=== PATIENT | male | born 1960 | race Two or more races ===

== ENCOUNTER 2022-04-26 07:48 | Emergency (ER) | payer OTHER ==
[~2022-04-26] VITALS: Ht 167.6 cm; Wt 90.7 kg
[2022-04-26] MEDS ORDERED: MOTRIN IB200 M1 (08:09)
[2022-04-26] MEDS ORDERED: CIPRO500 MG PO (08:10)
[2022-04-26] MEDS ORDERED: TAMS0.4C PO (08:10)
[2022-04-26] MEDS ORDERED: ATORVASTATIN CA20 MG PO (08:10)
[2022-04-26] MEDS ORDERED: ULTRAM50 MG PO (08:11)
[2022-04-26] MEDS ORDERED: FINASTERIDE5 MG PO (08:11)
== END 2022-04-26 14:38 | disposition home or self-care (01) ==
LOC: ER 07:48
DX: N39.0 Urinary tract infection, site not specified (principal); R33.9 Retention of urine, unspecified; N40.0 Benign prostatic hyperplasia without lower urinary tract symptoms

== ENCOUNTER 2022-05-29 18:01 | Emergency (ER) | payer OTHER ==
[~2022-05-29] VITALS: Ht 167.6 cm; Wt 95.3 kg
[~2022-05-29 18:01] MED LIST: ATORVASTATIN CA20 MG PO; CIPRO500 MG PO; FINASTERIDE5 MG PO; MOTRIN IB200 M1; TAMS0.4C PO; ULTRAM50 MG PO
== END 2022-05-29 22:06 | disposition home or self-care (01) ==
LOC: ER 18:01
DX: T83.9XXA Unspecified complication of genitourinary prosthetic device, implant and graft, initial encounter (principal); I10 Essential (primary) hypertension; N40.0 Benign prostatic hyperplasia without lower urinary tract symptoms; N39.0 Urinary tract infection, site not specified; Z46.6 Encounter for fitting and adjustment of urinary device; B96.89 Other specified bacterial agents as the cause of diseases classified elsewhere; Z16.19 Resistance to other specified beta lactam antibiotics

== ENCOUNTER 2022-06-28 05:56 | Emergency (ER) | payer OTHER ==
[~2022-06-28] VITALS: Ht 167.6 cm; Wt 95.3 kg
[2022-06-28] MEDS ORDERED: AMLODIPINE-OLM1 EAC1 PO (06:15)
== END 2022-06-28 10:24 | disposition home or self-care (01) ==
LOC: ER 05:56
DX: M54.89 Other dorsalgia (principal); N39.0 Urinary tract infection, site not specified; B96.89 Other specified bacterial agents as the cause of diseases classified elsewhere; I10 Essential (primary) hypertension

== ENCOUNTER 2022-08-15 17:56 | Emergency (ER) | payer OTHER ==
[~2022-08-15] VITALS: Ht 167.6 cm; Wt 93.0 kg
[~2022-08-15 17:56] MED LIST changes: +AMLODIPINE-OLM1 EAC1 PO
== END 2022-08-15 19:57 | disposition home or self-care (01) ==
LOC: ER 17:56
DX: T83.011A Breakdown (mechanical) of indwelling urethral catheter, initial encounter (principal)

== ENCOUNTER 2022-09-27 09:22 | Emergency (ER) | payer OTHER ==
[~2022-09-27] VITALS: Ht 167.6 cm; Wt 93.0 kg
[2022-09-27] MEDS ORDERED: TAMS0.4C (09:36)
[2022-09-27] MEDS ORDERED: ZESTRIL10 M1 (09:37)
[2022-09-27] MEDS ORDERED: LIPITOR40 MG (09:37)
[2022-09-27] MEDS ORDERED: AMLODIPINE-OLM1 EAC3 (09:37)
[2022-09-27] MEDS ORDERED: HYDROCHLOROTH12.5 MG PO (09:38)
[2022-09-27] MEDS ORDERED: PROSCAR5 MG (09:38)
== END 2022-09-27 10:53 | disposition home or self-care (01) ==
LOC: ER 09:22
DX: T83.118A Breakdown (mechanical) of other urinary devices and implants, initial encounter (principal)

== ENCOUNTER 2022-10-31 19:22 | Emergency (ER) | payer OTHER ==
[~2022-10-31] VITALS: Ht 167.6 cm; Wt 91.6 kg
== END 2022-10-31 20:16 | disposition home or self-care (01) ==
LOC: ER 19:22
DX: T83.011A Breakdown (mechanical) of indwelling urethral catheter, initial encounter (principal)

== ENCOUNTER → 2022-10-31 | Emergency (ER) | payer OTHER ==
[~2022-10-31] VITALS: Ht 167.6 cm; Wt 91.6 kg
[~2022-10-31] MED LIST changes: +AMLODIPINE-OLM1 EAC3; +HYDROCHLOROTH12.5 MG PO; +LIPITOR40 MG; +PROSCAR5 MG; +TAMS0.4C; +ZESTRIL10 M1
== END | disposition left against medical advice (07) ==
LOC: ER 21:53
DX: Z53.21 Procedure and treatment not carried out due to patient leaving prior to being seen by health care provider (principal)

== ENCOUNTER 2022-12-10 15:07 | Emergency (ER) | payer OTHER ==
[~2022-12-10] VITALS: Ht 170.2 cm; Wt 95.3 kg
== END 2022-12-10 17:06 | disposition home or self-care (01) ==
LOC: ER 15:07
DX: R33.9 Retention of urine, unspecified (principal); I10 Essential (primary) hypertension; Z85.46 Personal history of malignant neoplasm of prostate

== ENCOUNTER 2022-12-18 07:59 | Emergency (ER) | payer OTHER ==
[~2022-12-18] VITALS: Ht 167.6 cm; Wt 95.3 kg
== END 2022-12-18 09:32 | disposition home or self-care (01) ==
LOC: ER 07:59
DX: T83.098A Other mechanical complication of other urinary catheter, initial encounter (principal); I10 Essential (primary) hypertension; Z46.6 Encounter for fitting and adjustment of urinary device

== ENCOUNTER 2023-01-16 07:32 | Emergency (ER) | payer OTHER ==
[~2023-01-16] VITALS: Ht 170.2 cm; Wt 94.8 kg
== END 2023-01-16 09:42 | disposition home or self-care (01) ==
LOC: ER 07:32
DX: T83.9XXA Unspecified complication of genitourinary prosthetic device, implant and graft, initial encounter (principal)

== ENCOUNTER 2023-02-19 02:53 | Emergency (ER) | payer OTHER ==
[~2023-02-19] VITALS: Ht 170.2 cm; Wt 93.0 kg
== END 2023-02-19 09:08 | disposition home or self-care (01) ==
LOC: ER 02:53
DX: R30.0 Dysuria (principal)

== ENCOUNTER 2024-06-27 08:32 | Outpatient (CLI) | payer OTHER | END 2024-06-27 08:42 | disposition home or self-care (01) | LOC: RAD 08:32 | DX: F17.210 Nicotine dependence, cigarettes, uncomplicated (principal) ==